=== PATIENT | female | born 1950 | race Caucasian/White ===

== ENCOUNTER 2016-09-08 21:06 | Inpatient (IN) | payer OTHER ==
[~2016-09-08] VITALS: Ht 157.5 cm; Wt 64.9 kg
[2016-09-08 22:14] LABS: BASOPHIL % 0.4 % (0-2); PLATELET COUNT 255 x10^3mcL (130-400); RED CELL DISTRIBUTION WIDTH 14.4 % (11.5-14.5)
[2016-09-08 22:27] LABS: CALCIUM 8.9 mg/dL (8.5-10.1); CARBON DIOXIDE 25.1 mmol/L (21-32); CHLORIDE SERUM 100 mmol/L (98-107); CREATININE SERUM 1.6 mg/dL (0.6-1.0); GFR1 34 mL/min; GLUCOSE SERUM 158 mg/dL (74-106); POTASSIUM SERUM 3.9 mmol/L (3.5-5.1); SODIUM SERUM 137 mmol/L (136-145)
[2016-09-08 22:41] LABS: ALBUMIN 3.7 g/dL (3.4-5.0); ALKALINE PHOSPHATASE 91 U/L (46-116); ALT/SGPT 16 U/L (14-59); AST/SGOT 17 U/L (15-37); BILIRUBIN TOTAL 0.4 mg/dL (0.20-1.00); T4(THYROXINE) 10.6 ug/dL (4.7-13.3); TOTAL PROTEIN, SERUM 7.3 g/dL (6.4-8.2)
[2016-09-08 22:46] LABS: AMPHETAMINE QUAL UR NONE DETECTED (NEG <=1000)
[2016-09-08] MEDS ORDERED: ENALAPRIL MALE2.5 MG (23:45)
[2016-09-08] MEDS ORDERED: SIMVASTATIN5 M2 (23:45)
[2016-09-08] MEDS ORDERED: GABAPENTIN100 M2 (23:45)
[2016-09-08] MEDS ORDERED: LANTUS SOLOS100 U/M1 (23:45)
[2016-09-08] MEDS ORDERED: HYDRALAZINE HCL25 MG (23:46)
[2016-09-08] MEDS ORDERED: KEFLEX250 M1 (23:49)
[2016-09-09] VITALS (7 sets, daily range): BP systolic 153–233; BP diastolic 65–90; Ht 157.5 cm; Wt 64.9 kg
[2016-09-09 03:08] LABS: microscopic required? YES; urine erythrocyte NEGATIVE (NEGATIVE)
[2016-09-09 03:30] LABS: CHOLESTEROL/HDL RATIO 3.9
[2016-09-09 03:33] LABS: FREE T4 1.63 ng/dL (0.76-1.46); FREE THYROXINE INDEX 4.3 ug/dL (1.4-4.5); T4(THYROXINE) 11.2 ug/dL (4.7-13.3)
[2016-09-09 03:57] LABS: T3 TOTAL 0.62 ng/mL
[2016-09-09 06:52] LABS: BASOPHIL % 0.5 % (0-2); PLATELET COUNT 211 x10^3mcL (130-400); RED CELL DISTRIBUTION WIDTH 14.3 % (11.5-14.5)
[2016-09-09 06:54] LABS: CALCIUM 8.3 mg/dL (8.5-10.1); CARBON DIOXIDE 23.7 mmol/L (21-32); CREATININE SERUM 1.5 mg/dL (0.6-1.0); MAGNESIUM 2.3 mg/dL (1.8-2.4); PHOSPHOROUS 4.4 mg/dL (2.5-4.9); POTASSIUM SERUM 3.9 mmol/L (3.5-5.1)
[2016-09-09] MEDS ORDERED: CLONIDINE0.2 M1 PO (20:04)
[2016-09-09] MEDS ORDERED: HYDRALAZINE HCL25 MG PO (20:05)
[2016-09-09] MEDS ORDERED: GABAPENTIN100 M2 PO (20:05)
[2016-09-09] MEDS ORDERED: ASPIRIN ADULT L81 M3 PO (20:06)
[2016-09-09] MEDS ORDERED: LEVOTHYROXIN0.125 M2 PO (20:06)
[2016-09-09] MEDS ORDERED: SIMVASTATIN20 M1 PO (20:09)
[2016-09-09] MEDS ORDERED: ENALAPRIL20 M1 PO (20:09)
[2016-09-10] VITALS (7 sets, daily range): BP systolic 157–189; BP diastolic 63–79
[2016-09-10 06:16] LABS: BASOPHIL % 0.7 % (0-2); PLATELET COUNT 228 x10^3mcL (130-400)
[2016-09-10 06:31] LABS: CALCIUM 8.2 mg/dL (8.5-10.1); CREATININE SERUM 1.4 mg/dL (0.6-1.0); POTASSIUM SERUM 3.8 mmol/L (3.5-5.1)
[2016-09-10 06:34] LABS: ALBUMIN 3.1 g/dL (3.4-5.0)
[2016-09-11 05:01] VITALS: BP 145/78
[2016-09-11 06:09] LABS: CALCIUM 8.6 mg/dL (8.5-10.1); CARBON DIOXIDE 26.7 mmol/L (21-32); CREATININE SERUM 1.4 mg/dL (0.6-1.0); POTASSIUM SERUM 4.1 mmol/L (3.5-5.1); URIC ACID 5.5 mg/dL (2.6-6.0)
[2016-09-11 06:11] LABS: ALBUMIN 3.1 g/dL (3.4-5.0)
[2016-09-11 07:06] LABS: BASOPHIL % 0.8 % (0-2); PLATELET COUNT 241 x10^3mcL (130-400); RED CELL DISTRIBUTION WIDTH 14.4 % (11.5-14.5)
[2016-09-11 07:59] VITALS: BP 138/69
[2016-09-11 09:38] VITALS: BP 172/68
[2016-09-11 13:05] VITALS: BP 107/40
[2016-09-11 14:05] VITALS: BP 107/40
[2016-09-11] MEDS ORDERED: MIN2.5 PO (14:53)
[2016-09-11] MEDS ORDERED: TEN50 PO (14:53)
[2016-09-11] MEDS ORDERED: LEXAPRO10 MG PO (14:54)
[2016-09-11] MEDS ORDERED: NITROFURANTOIN50 MG PO (14:56)
[2016-09-11] MEDS ORDERED: LAC PO (14:56)
== END 2016-09-11 15:28 | disposition home health service (06) | DRG 885 ==
LOC: ED 21:06 → DU 23:37 → MU 09-10 09:37
PROVIDERS: Emergency Medicine; ADMIT Family Medicine
DX: F33.1 Major depressive disorder, recurrent, moderate (principal); N17.0 Acute kidney failure with tubular necrosis; E44.0 Moderate protein-calorie malnutrition; I69.354 Hemiplegia and hemiparesis following cerebral infarction affecting left non-dominant side; N39.0 Urinary tract infection, site not specified; D68.69 Other thrombophilia; I16.0 Hypertensive urgency; I11.9 Hypertensive heart disease without heart failure; E83.51 Hypocalcemia; R80.8 Other proteinuria; E78.1 Pure hyperglyceridemia; E11.42 Type 2 diabetes mellitus with diabetic polyneuropathy; E03.9 Hypothyroidism, unspecified; E78.5 Hyperlipidemia, unspecified; D64.9 Anemia, unspecified; Z79.4 Long term (current) use of insulin; Z90.5 Acquired absence of kidney; Z68.26 Body mass index [BMI] 26.0-26.9, adult
CPT/HCPCS: 80307; 82962; 83880; 84439; G0480; J0360; J0696; J3490; J7030; J7050; Q0092

== ENCOUNTER 2018-08-06 19:51 | Inpatient (IN) | payer OTHER ==
[~2018-08-06] VITALS: Ht 157.5 cm; Wt 54.0 kg
[~2018-08-06 19:51] MED LIST: ASPIRIN ADULT L81 M3 PO; CLONIDINE0.2 M1 PO; ENALAPRIL MALE2.5 MG; ENALAPRIL20 M1 PO; GABAPENTIN100 M2; GABAPENTIN100 M2 PO; HYDRALAZINE HCL25 MG; HYDRALAZINE HCL25 MG PO; KEFLEX250 M1; LAC PO; LANTUS SOLOS100 U/M1; LEVOTHYROXIN0.125 M2 PO; LEXAPRO10 MG PO; MIN2.5 PO; NITROFURANTOIN50 MG PO; SIMVASTATIN20 M1 PO; SIMVASTATIN5 M2; TEN50 PO
--- NOTE | 2018-08-06 20:31 | NUR ---
PATIENT CAME IN FOR FEVER X "5 WEEKS", WHEN ASKED HOW HIGH OF A FEVER SHE STATES "100.9." REPORTS NAUSEA, DENIES VOMITTING OR DIARRHEA. DENIES CHEST PAIN, PRESSURE, SOB. WHEN ASKED HOW HER SYMPTOMS BEGAN, SHE STATES SHE HAD A DIALYSIS CATHETER PLACED IN HE RIGHT UPPER CHEST 5 WEEKS AGO. SITE APPEARS RED, WITHOUT ANY DRAINAGE NOTED. PATIENT COMPLAINS OF "BONE PAIN" 01/08. PT AWAKE, ALERT, RESPIRATIONS EVEN AND UNLAOBRED, NO S/S OF DISTRESS NOTED AT THIS TIME. SAFETY PRECAUTIONS IN PLACE. FAMILY AT BEDSIDE. SAFETY PRECAUTIONS IN PLACE
--- NOTE | 2018-08-06 20:39 | NUR ---
DR. ROBBINS AT BEDSIDE FOR MSE
--- NOTE | 2018-08-06 21:08 | NUR ---
PT PROVIDED WITH URINE SPECIMEN CUP AND VERBALIZED FOR NEED TO PROVIDE URINE SAMPLE, PATIENT VERBALIZES UNDERSTANDING.
--- NOTE | 2018-08-06 21:09 | NUR ---
EKG IN ROOM
[2018-08-06 21:16] LABS: PLATELET COUNT 309 x10^3mcL (130-400); RED CELL DISTRIBUTION WIDTH 14.4 % (11.5-14.5)
--- NOTE | 2018-08-06 21:20 | NUR ---
MEDICATED PER EMAR. AND PLACED ON 2L OXYGEN, 02 SAT 87-94% ON ROOM AIR. WILL CONTINUE TO MONITOR.
--- NOTE | 2018-08-06 21:25 | NUR ---
CXR AT BEDSIDE
[2018-08-06 21:27] LABS: CALCIUM 8.4 mg/dL (8.5-10.1); CARBON DIOXIDE 31.3 mmol/L (21-32); CREATININE SERUM 2.5 mg/dL (0.6-1.0); POTASSIUM SERUM 3.5 mmol/L (3.5-5.1)
[2018-08-06 21:32] LABS: BAND NEUTROPHIL 14 % (0-10); BASOPHIL 0 % (0-2); MONOCYTE 5 % (0-7); SEGMENTED NEUTROPHILS 79 % (37-75); rbc morphology (normal/abnorm) NORMAL (NORMAL)
[2018-08-06 21:33] LABS: PLATELET MORPHOLOGY PLATELETS NORMAL
[2018-08-06 21:39] LABS: BILIRUBIN TOTAL 0.6 mg/dL (0.20-1.00); FREE T4 1.27 ng/dL (0.76-1.46); TOTAL PROTEIN, SERUM 6.7 g/dL (6.4-8.2)
[2018-08-06 21:50] LABS: ALBUMIN 2.8 g/dL (3.4-5.0)
--- NOTE | 2018-08-06 21:55 | NUR ---
DANIEL COMPLETED AT THIS TIME. CALLED PHARMACY NEDA ABOUT VANCO NOT BEING AVAILABLE, NEDA STATES SHE WILL BRING VANCO.
--- NOTE | 2018-08-06 22:43 | NUR ---
PT RESTING WITH EYES CLOSED, RESPONDS TO VERBAL STIMULI, RESPIRATIONS EVEN AND UNLABORED, NO S/S OF DISTRESS NOTED. SAFETY PRECAUTIONS IN PLACE.
--- NOTE | 2018-08-06 23:24 | NUR ---
PT REMAINS FREE FROM S/S OF DISTRESS, RESPIRATIONS EVEN AND UNLABORED. SAFETY PRECAUTIONS IN PLACE.
--- NOTE | 2018-08-06 23:45 | NUR ---
REPORT GIVEN TO OLLIE VALDES, ALL QUESTIONS AND CONCERNS WERE ADDRESSED.
[2018-08-07] VITALS (8 sets, daily range): BP systolic 109–161; BP diastolic 44–85
--- NOTE | 2018-08-07 00:10 | NUR ---
RECEIVED PT FROM ED VIA [facility], CAME IN DUE TO FEVER. AAOX4.W/ LEFT FACIAL DROOP AND LEFT SIDED WEAKNESS. LEFT HAND THEORETICAL PHYSICIST IS WEAKER THAN THE RIGHT. NO SOB NOTED, LUNG SOUNDS CTA. WHEN PLACED ON ROOM AIR, O2 SAT=88%, PLACED ON 3LPM/NC, O2 SAT=95%. DENIES CHEST PAIN/PRESSURE, SR ON THE MONITOR. DENIES ABDOMINAL DISCOMFORT. BOWEL SOUNDS ACTIVE. PT STATED THAT SHE STILL VOIDS. ON HD EVERY THURSDAY AND THURSDAY. W/ RIGHT CHEST DIALYSIS CATHETER. W/ ERYTHEMA ON THE INSERTION SITE OF THE RIGHT CHEST DIALYSIS CATHETER AND SMALL SCAB ON THE RIGHT UPPER CHEST. PALE. PULSES ARE PALPABLE. IV SITE ON THE RFA IS PATENT AND INTACT. SIDE RAILS UPX2. CALL LIGHT ON REACH. PRIMARY NURSE OLLIE AT BEDSIDE FOR CONTINUITY OF CARE
--- NOTE | 2018-08-07 00:15 | NUR ---
PT IS AAOX4. TELE #16 NSR HR 77, PT DENIES ANY CHEST PAIN. LUNG SOUNDS CTA ON NC 3L/MIN NO SOB NOTED. IV RFA PATENT, INFUSING WELL. LEFT SIDED FACIAL DROOP, LEFT SIDED WEAKNESS. PT USES WHEELCHAIR. DIALYSIS CATH ON RIGHT UPPER CHEST WITH ERYTHEMA NOTED. ACTIVE BOWEL SOUNDS, PT STATES SHE HAD A BM 08/06/18 BUT SHE IS CONSTIPATED. CALL BUTTON WITHIN REACH. WILL CONTINUE TO MONITOR.
[2018-08-07 02:58] LABS: microscopic required? YES; urine erythrocyte TRACE (NEGATIVE)
--- NOTE | 2018-08-07 03:01 | NUR ---
PT USED THE BEDPAN AT THIS TIME, DENIES ANY PAIN. IV INFUSING WELL. WILL CONTINUE TO MONITOR.
[2018-08-07 03:34] LABS: AMPHETAMINE QUAL UR NONE DETECTED (See below)
--- NOTE | 2018-08-07 05:15 | NUR ---
RT AT BEDSIDE.
--- NOTE | 2018-08-07 05:49 | NUR ---
PT ON NC 4L/MIN O2SAT 87-90%, BREATHING TREATMENT PER RT PROTOCOL, AFTER TREATMENT SIMPLE MASK PLACED AT 9L/MIN O2SAT 95-96%, PER RT WILL COME BACK AND DO ANOTHER TREATMENT AND TITRATE.
--- NOTE | 2018-08-07 07:02 | NUR ---
AT 0630 BASIN OPERATOR NOTED PT HAVING DIFFICULTY BREATHING WITH MASK OFF. CHARGE NURSE WENT AT BEDSIDE RIGHT AWAY TO ASSESS PATIENT. DR GRAJEDA WALKING DOWN THE HALLWAY AND WAS CALLED. RT CALLED. RAPID RESPONSE TEAM RESPONDED ON TIME. PT TRANSFERED TO ICU AT 0708.
--- NOTE | 2018-08-07 07:10 | NUR ---
RECIEVED PT FROM [facility]. PT A&OX3. ABLE TO FOLLOW COMMANS. RESPONDS TO VERBAL, TACTILE, AND PAINFUL STIMULUS. VS = BP: 161/62 (102), HR: 124 BPM, RR: 38, TEMP: 100.2, O2: 100%. ON BIPAP OF 100% FIO2, IPAP: 12, EPAP: 6, RATE: 12. BREATHING E/U. LUNG SOUNDS: WHEEZES IN BUL AND DIMINISHED TO BLL. PUPILS 3MM IN SIZE AND BRISK IN RESPONSE TO LIGHT BILATERALLY. L FACIAL DROOP AND LEFT SIDED WEAKNESS NOTED. NO CHEST PAIN NOTED. RIGHT CHEST DIALYSIS CATH NOTED. PULSES ARE STRONG TO BUE AND BLE. CAP REFILL <3 SEC TO BUE AND BLE. SKIN WARM AND DRY TO TOUCH, BROWN IN COLOR. SKIN INTACT. NO WOUNDS NOTED. R AC PIV INTACT AND SECURED, NO FLUIDS RUNNING. NO EDEMA NOTED. LEFT HAND WEAKER IN STRENGTH THAT RIGHT HAND. WILL RESUME CARE.
--- NOTE | 2018-08-07 07:10 | NUR ---
RECIEVED PT FROM [facility]. WILL RESUME CARE.
--- NOTE | 2018-08-07 07:23 | NUR ---
CALLED PT'S REGARDING PT TRANSFERRED TO ICU, VOICEMAIL LEFT.
--- NOTE | 2018-08-07 07:59 | NUR ---
SPOKE WITH DR. DUNN IN REGARDS TO CLARIFY CODE STATUS. PT ARRIVED S/P RAPID RESPONSE ON BIPAP WITH A DNR CODE STATUS. PER DR. DUNN PT REMAINS A DNR BUT PT WAS OK WITH BIPAP DURING THE RAPID RESPONSE. AWAITING FOR DR. DUNN TO UPDATE CODE STATUS. PRIMARY RN AWARE OF THE ABOVE.
[2018-08-07 08:19] LABS: CALCIUM 7.9 mg/dL (8.5-10.1); CARBON DIOXIDE 27.7 mmol/L (21-32); MAGNESIUM 1.7 mg/dL (1.8-2.4); PHOSPHOROUS 1.6 mg/dL (2.5-4.9); POTASSIUM SERUM 3.4 mmol/L (3.5-5.1)
[2018-08-07 08:20] LABS: IRON 6 ug/dL (50-170); TOTAL IRON BINDING CAPACITY 153 ug/dL (250-450)
[2018-08-07 08:48] LABS: PLATELET COUNT 292 x10^3mcL (130-400)
[2018-08-07 08:50] LABS: RED BLOOD CELLS 2.77 M/mm3 (4.10-5.10)
[2018-08-07 09:07] LABS: RED CELL DISTRIBUTION WIDTH 14.8 % (11.5-14.5)
--- NOTE | 2018-08-07 09:30 | NUR ---
DR DUNN PAGED REGARDING BLOOD CULTURE RESULT
--- NOTE | 2018-08-07 10:37 | NUR ---
DR. RIDLEY AND RESIDENTS AT BEDSIDE. ADDRESSING QUESTIONS FROM PT'S SPOUSE. NO NEW ORDERS AT THIS TIME.
--- NOTE | 2018-08-07 10:52 | NUR ---
DR. RIDLEY, RESIDENT DR. DUNN, TECHNICAL DOCUMENTATION SPECIALIST AND PRIMARY RN AT BEDSIDE FOR MORNING ROUNDS. PLAN OF CARE DISCUSSED. WILL CONT TO MONITOR.
[2018-08-07 11:10] LABS: BAND NEUTROPHIL 9 % (0-10); BASOPHIL 0 % (0-2); MONOCYTE 1 % (0-7); SEGMENTED NEUTROPHILS 87 % (37-75)
[2018-08-07 11:11] LABS: PLATELET MORPHOLOGY PLATELETS NORMAL; rbc morphology (normal/abnorm) ABNORMAL (NORMAL)
--- NOTE | 2018-08-07 12:20 | NUR ---
HD NURSE AT BEDSIDE.
--- NOTE | 2018-08-07 15:14 | NUR ---
PUT PT ON NC @ 4LPM. 02 SAT IN 95-98%. WILL CONTINUE TO CLOSELY MONITOR.
--- NOTE | 2018-08-07 18:00 | NUR ---
GIVEN PT SUPPOSITORY. HAD A SMALL AMOUNT OF DARK BROWN AND SOFT STOOL. PT CLEANED AND LINEN CHANGED.
--- NOTE | 2018-08-07 19:16 | NUR ---
GIVEN REPORT TO ANTONIO VALDES. WILL ENDORSE CARE.
--- NOTE | 2018-08-07 19:30 | NUR ---
REC'D REPORT FROM DAO VALDES TO ASSUME CARE. PT IS A/O X4, SPEECH CLEAR AND APPROPRIATE. ABLE TO FOLLOW COMMANDS. LEFT SIDED DEFICIT NOTED WITH HX CVA 12/23/2010. PT DENIES ANY PAIN OR DISCOMFORT. NO ACUTE DISTRESS NOTED. NO SOB NOTED, RESPS E/U ON O2 4LPM VIA NC. CHEST RISE EQUAL AND SYMMETRICAL. LUNG SOUNDS CLEAR BUL, DIMINISHED BASES. VEHICLE BODY MAKER IN PLACE SHOWING NSR WITH HR 71. DENIES ANY CP, SYNCOPE, OR DIZZINESS. SKIN WARM DRY TO TOUCH. IV TO RFA INTACT AND PATENT, SL. R UPPER CHEST VERO HD CATH INTACT AND SECURED, DSG CDI. ABD SOFT, FLAT, NONTENDER TO TOUCH. BOWEL SOUNDS ACTIVE. DENIES ANY N/V/D. F/C INTACT AND DRAINING VIA GRAVITY YELLOW URINE. INSTRUCTED TO USE CALL LIGHT FOR ANY ASSISTANCE. CALL LIGHT WITHIN REACH. WILL CONTINUE TO MONITOR.
--- NOTE | 2018-08-07 20:30 | NUR ---
DR LORENZO AT BEDSIDE, UPDATED ON STATUS, NO NEW ORDERS GIVEN.
--- NOTE | 2018-08-07 21:00 | NUR ---
BS 95, PT PROVIDED HS SNACK. PT ATE HALF PEANUT BUTTER JELLY SANDWICH WITH ORANGE JUICE.
--- NOTE | 2018-08-07 22:50 | NUR ---
PT AWAKE, REPOSITIONED AT THIS TIME.
[2018-08-08 03:39] VITALS: BP 124/49
--- NOTE | 2018-08-08 04:51 | NUR ---
PT HAD MODERATE SIZED BM, PT CLEANED AND LINENS CHANGED. REPOSITIONED AT THIS TIME.
[2018-08-08 05:33] LABS: BASOPHIL % 0.1 % (0-2); PLATELET COUNT 281 x10^3mcL (130-400)
[2018-08-08 05:44] LABS: RED CELL DISTRIBUTION WIDTH 14.7 % (11.5-14.5)
[2018-08-08 05:53] LABS: CALCIUM 7.8 mg/dL (8.5-10.1); CREATININE SERUM 3.6 mg/dL (0.6-1.0); MAGNESIUM 2.8 mg/dL (1.8-2.4); PHOSPHOROUS 2.5 mg/dL (2.5-4.9); POTASSIUM SERUM 3.8 mmol/L (3.5-5.1)
--- NOTE | 2018-08-08 06:36 | NUR ---
PT PLACED ON BEDPAN, LOOSE BM NOTED D/T MOM GIVEN FOR C/O CONSTIPATION. PT CLEANED, LINENS CHANGED.
--- NOTE | 2018-08-08 06:45 | NUR ---
PT WITH C/O 7/10 CHEST PRESSURE, MEDICATED WITH MORPHINE IVP. WILL MONITOR FOR EFFECTIVENESS.
--- NOTE | 2018-08-08 07:09 | NUR ---
REPORT GIVEN TO CASIE VALDES TO ASSUME CARE.
[2018-08-08 07:20] VITALS: BP 123/75
[2018-08-08 07:36] VITALS: Ht 157.5 cm; Wt 54.0 kg
[2018-08-08 11:35] VITALS: BP 121/45
--- NOTE | 2018-08-08 13:14 | NUR ---
O2 SAT 100%. BREATHING E/U AND REGULAR EFFORT. 3L NC TITRATED OFF AT THIS TIME. PT REMAINS @ 99% O2 SATURATION. WILL CONTINUE TO MONITOR
--- NOTE | 2018-08-08 15:58 | NUR ---
O2 SAT 91%. PLACED ON 2L NC. O2 SAT NOW 100%. NO S/SX OF DISTRESS.
--- NOTE | 2018-08-08 16:05 | NUR ---
REPORT GIVEN TO FREDDIE VALDES. ALL QUESTIONS ADDRESSED.
[2018-08-08 16:10] VITALS: BP 99/47
--- NOTE | 2018-08-08 16:15 | NUR ---
PT RECEIVED FROM ICU ON A GURNEY ESCORTED BY FAMILY. REPORT GIVEN BY KEISHA JASON. PT IS AAOX4. DENIES H/A OR DIZZINESS. RESP EVEN AND UNLABORED. ON O2 N/C AT 2LPM. ABDOMEN SOFT, NONTENDER, NONDISTENDED. BOWEL SOUNDS ACTIVE. VERO CATH TO R SUBCLAVIAN COVERED WITH CDI DRESSING. IV CATH TO RFA 22G WITH FLUIDS RUNNING, PATENT, SITE WNL. PT ON STRICT I AND O WITH 1200ML LIMIT, PT HAS 400 ML LEFT TO BE CONSUMED. NUNEZ CATH IN PLACE DRAINING CLEAR STRAW COLORED URINE. BED IN LOW POSITION. CALL LIGHT WITHIN REACH.
--- NOTE | 2018-08-08 18:10 | NUR ---
PT IS SITTING UP IN BED EATING DINNER AND VISITING FAMILY. RESP EVEN AND UNLABORED. NO SOB OR COUGH NOTED. PT DENIES PAIN AND DISCOMFORT. CALL LIGHT WITHIN REACH. BED ALARM ON.
--- NOTE | 2018-08-08 18:40 | NUR ---
PT IS AAOX4. RESP EVEN AND UNLABORED. NO RESP DISTRESS NOTED. IVF RUNNING TO RFA, SITE IS PATENT AND WNL. R SUBCLAVIAN VERO CATH COVERED WITH CDI DRESSING, SITE WNL. NUNEZ CATH IN PLACE DRAINING CLEAR STRAW COLORED URINE. PT DENIES PAIN AND DISCOMFORT AT THIS TIME. CALL LIGHT WITHIN REACH, BED ALARM ON, BED IN LOW POSITION. WILL ENDORSE ALL CARE TO NOC RN.
--- NOTE | 2018-08-08 19:05 | NUR ---
RECEIVED PT A/O X4, [facility] SPEAKING, ABLE TO MAKE NEEDS KNOWN. TELE 48, DENIES ANY CP/PRESSURE. PULSES PALPABLE, NO EDEMA PRESENT. LUNG SOUNDS DIM TO TIFF BASES, BREATHING IS EVEN AND UNLABORED ON 2L NC, PT DENIES SOB, NO RESP DISTRESS OBSERVED. HOB ELEVATED. NUNEZ CATH IN PLACE DRAINING TO GRAVITY, YELLOW COLORED URINE NOTED. STRICT I+O: 1200 ML FLUID RESTRICTION. GENERALIZED WEAKNESS. CONTRACTURE TO LH. SKIN IS INTACT. PT DENIES ANY PAIN AT THIS TIME. TO RFA, PATENT AND INTACT, SITE WNL. BED IN LOWEST SETTING, SIDE RAILS UP X2, BED ALARM ON, CALL LIGHT WITHIN REACH. WILL CONT TO MONITOR.
[2018-08-08 20:37] VITALS: BP 141/57
--- NOTE | 2018-08-08 21:19 | NUR ---
DR LORENZO IN TO SEE PT. PER DR LORENZO, PT NEEDS TO START HAVING DIALYSIS 3X/WEEK. PT VERBALIZES UNDERSTANDING. ORDERS RECEIVED FOR DIALYSIS TOMORROW. ALL QUESTIONS AND CONCERNS ADDRESED. PT IN NO ACUTE DISTRESS, WILL CONT TO MONITOR.
--- NOTE | 2018-08-08 22:00 | NUR ---
PER ORCHARDIST-WILLIAN, DIALYSIS NURSE-DIONNA WAS CALLED AND MADE AWARE OF PT NEEDING DIALYSIS TOMORROW. PER ORCHARDIST, "DIONNA WILL COME IN THE AM TO DO DIALYSIS."
--- NOTE | 2018-08-09 00:11 | NUR ---
PT AWAKE AND ALERT, WATCHING TV. BREATHING IS EVEN AND UNLABORED, PT PLACED ON BIPAP PER PT'S REQUEST, NO RESP DISTRESS NOTED. NUNEZ IN PLACE, DRAINING TO GRAVITY. PT DENIES ANY PAIN AT THIS TIME. IV INTACT TO RFA. BED ALARM ON, CALL LIGHT WITHIN REACH. WILL CONT TO MONITOR.
--- NOTE | 2018-08-09 01:25 | NUR ---
PT AWAKE AND ALERT. PT REQUESTING TO BE OFF BIPAP, PT STATES "I CAN'T SLEEP WITH IT ON." BIPAP REMOVED PER PT'S REQUEST. PT PLACED BACK ON 2L NC, NO RESP DISTRESS NOTED. PT DENIES HAVING ANY PAIN AT THIS TIME. BED ALARM ON, CALL LIGHT WITHIN REACH. WILL CONT TO MONITOR.
[2018-08-09 04:50] VITALS: BP 150/61
--- NOTE | 2018-08-09 06:57 | NUR ---
PT SLEPT WELL THROUGHOUT THE EVENING. BREATHING IS EVEN AND UNLABORED ON 2L NC, NO RESP DISTRESS NOTED. PT DENIES ANY PAIN AT THIS TIME. NUNEZ CARE GIVEN, URINE OUTPUT-350 ML. NUNEZ CATH SECURE AND IN PLACE, DRAINING TO GRAVITY. ALL NEEDS MET. BED ALARM ON. CALL LIGHT WITHIN REACH. WILL ENDORSE CARE TO AM NURSE.
--- NOTE | 2018-08-09 07:11 | NUR ---
RECEIVED REPORT FROM SUZETTE VALDES. PT RESTING COMFORTABLY IN BED. IV TO RFA IS PATENT AND INTACT. NO REDNESS OR PAIN. TELE # [address] PT DENIES CHEST PAIN. PT ON O2 2L NC. NO C/O SOB AND NO DISTRESS NOTED. ALL QUESTIONS AND CONCERNS ADDRESSED.
[2018-08-09 08:31] LABS: PLATELET COUNT 315 x10^3mcL (130-400)
[2018-08-09 08:32] LABS: BASOPHIL % 0 % (0-2); RED CELL DISTRIBUTION WIDTH 15.3 % (11.5-14.5)
[2018-08-09 08:46] LABS: POTASSIUM SERUM 3.8 mmol/L (3.5-5.1)
[2018-08-09 09:12] LABS: CREATININE SERUM 4.8 mg/dL (0.6-1.0)
[2018-08-09 09:45] VITALS: BP 131/49
--- NOTE | 2018-08-09 11:43 | NUR ---
PHYSICAL THERAPY AMBULATING WITH PATIENT IN THE [place].
--- NOTE | 2018-08-09 12:04 | NUR ---
DIABETES EDUCATION NURSE AGATA IN TO SEE PATIENT.
[2018-08-09 13:18] VITALS: BP 137/52
--- NOTE | 2018-08-09 15:24 | NUR ---
Intervention 1. [facility] and Nephro-stanley supplement for dialysis pts spoke to Dr. Segura
--- NOTE | 2018-08-09 15:24 | NUR ---
Initial Nutrition Assessment- Isatu Villegas Dx: fever, sever sepsis, pulmonary edema PMHx: HTN, Hyperlipidemia, DM2, Hypothyroidism, Renal cancer, ESRD on HD Basal ganglia stroke 7 years ago PSHx: nephrectomy due to renal cancer does not remember which side or when Labs: Na 136, K 3.8, Cl 97L, Glucos 177H, BUN 61, Creat 5.8, Hgb 8.2 L, Hct 24L Meds: Colace, Dextrose 50% water, Dulcolax, Humulin, Lasix, Lexapro, Milk of Magnesia, Precision PCX Blood Gluocse Test Strips, Synthroid, Zofran, Zosyn Ht: 62 in Wt: 122# 55.5kg BMI: 22.4 WNL IBW: 115# %IBW: % UBW: 152 Age:68 Food Allergies: NKA Skin: Intact Brandon 15 Edema: None GI: Last BM 08/07/18 Per H&P: Was presented with fever, generalized pain, and nausea for 5 weeks. She states that she started having fevers when she first started dialysis 5 weeks ago and had her dialysis catheter placed. She describes the pain as an aching in her bones and rates it an 8/10. She ambulates by wheelchair because of left sided deficits due to her stroke 7 years ago. She also admits to runny nose and constipation for 3 to 4 days, photophobia and dizziness. She denies vomiting, changes in urination, chest pain, cough, sore throat, numbness. Pt Visit: Pt was receptive of education and was on dialysis when education was being given. Made recommendation for renal diet and Nephro-stanley to Dr. Segura and he took note of it as well. Problem with: N: yes V: yes (yesterday) D: this morning C: No Problems with: Chewing: No Swallowing: No Current appetite: Usually ok, sometimes wants to eat Recent wt change: a little wt loss due to dialysis %wt change: None Vitamin/Supplement use: Calcium and Iron 2-3x/day Physical activity: walks for 15 mins a day Education: Renal diet handout was given and vit/supplement education was discussed for Nephro-stanley for pts on dialysis. Estimated Nutritional Needs Based on actual body weight kg Energy: 1665-1942kcal/d (RMR X)(30-35kcal/kg based on dialysis needs) Protein: 67-78g/d (g/kg)- (1.2-1.4 g/kg based on dialysis needs) Fluid: per doctor recommendation due to dialysis Nutrition Diagnosis 1. Food and nutrition related knowledge deficit r/t lack of prior education aeb pt demonstrating unfamiliarness with renal diet restrictions. Intervention 1. Renal/[facility] diet recommended and Nephro-stanley supplement for dialysis pts spoke to Dr. Segura Monitor/Evaluate Goal: PO intake at least 75% of estimated needs Monitor: PO intake and knowledge and tolerance of renal diet and recommendations of Nephro-stanley supplement, wt and labs if available F/U MR due 08/12-08/14
--- NOTE | 2018-08-09 16:29 | NUR ---
DIALYSIS COMPLETE. 2.6L OUT. PT TOLERATED IT WELL.
[2018-08-09 17:45] VITALS: BP 149/59
--- NOTE | 2018-08-09 19:00 | NUR ---
RECEIVED PT IN BED COMFORTABLY RESTING.AAOX4. LUNG SOUND CTA,BREATHING EVEN AND UNLABORED.TELE# 48 NSR.DENIES ANY PRESSURE OR CP AT THIS TIME. IV SITE TO RFA PATENT AND INTACT.RIGHT SUBCLAVIAN MARK CATH ACCESS FOR HD.BIPAP AT BEDSIDE.NOTICED LEFT HAND CONTRACTURE. BED IN LOWEST POSITION,CALL LIGHT WITHIN REACH. WILL CONTINUE TO MONITOR.
--- NOTE | 2018-08-09 19:58 | NUR ---
REPORT GIVEN TO IVIS VALDES. PT RESTING IN BED WITH ALL NEEDS MET. ALL QUESTIONS AND CONCERNS ADDRESSED. ALL CARES ENDORSED.
[2018-08-09 21:09] VITALS: BP 144/51
--- NOTE | 2018-08-10 05:10 | NUR ---
PT AOX4.NO DISTRESS NOTED.DENIES ANY PAIN AT THIS TIME.F/C CARE DONE.BED IN LOWEST POSITION,CALL LIGHT WITHIN REACH. WILL CONTINUE TO MONITOR.
[2018-08-10 05:14] VITALS: BP 150/63
[2018-08-10 06:58] LABS: CALCIUM 7.8 mg/dL (8.5-10.1); CARBON DIOXIDE 25.6 mmol/L (21-32); POTASSIUM SERUM 3.7 mmol/L (3.5-5.1)
--- NOTE | 2018-08-10 07:28 | NUR ---
CARE ENDORSED TO DAY NURSE SUJATA.ALL QUESTION AND CONCERN WERE ADDRESSED.
[2018-08-10 07:29] LABS: BASOPHIL % 0.4 % (0-2); PLATELET COUNT 310 x10^3mcL (130-400)
[2018-08-10 07:39] LABS: RED CELL DISTRIBUTION WIDTH 15.5 % (11.5-14.5)
--- NOTE | 2018-08-10 07:50 | NUR ---
RECEIVED PT IN BED. ASSESSED AND DOCUMENTED. DENIES PAIN THIS TIME. STABLE. SAFTEY PRECAUTIONS ARE IN PLACE. WILL MONITOR.
--- NOTE | 2018-08-10 09:30 | NUR ---
AWARE ABOUT H/H=7.11/21. NO NEW ORDER RECEIVED THIS TIME.
[2018-08-10 09:56] VITALS: BP 147/61
--- NOTE | 2018-08-10 12:40 | NUR ---
OR NURSE JEANNINE CAME AND EXPLAINED THE PROCEDURE TO THE PT AND HAVE PT SIGNED CONSENT FOR REMOVAL OF TUNNEL CATH, ALSO EXPLAINED TO THE PROCEDURE TO PT. CHECK LIST DONE. OR STAFF TOOK PT TO OR VIA BED. V/S IS STABLE.
--- NOTE | 2018-08-10 13:29 | NUR ---
AT 1320 PATIENT RECEIVED FROM RR VIA BED ACCOMPANIED BY RN WITH PORTABLE MONITOR. PATIENT IS ALERT AND ORIENTED X3, OCCITAN SPEAKING BUT ABLE TO MAKE NEEDS KNOW.S/P RT TUNNEL CATH REMOVAL TODAY, PER RR NURSE CATH TIP SEND TO LAB FOR C&S, SITE WITH DERMABONUDN, SITE NO BLEEDING, VITAL SIGNS FOLLOWS= TEMP98.6, RR=18BPM, HR=68BPM, UK=904/58, ON 2LNC SAT 98%.TELE#48 NSR. PATIENT REQUESTING FOR FOOD, INFORMED THAT WE WILL CALL MD FOR ORDER.
--- NOTE | 2018-08-10 13:33 | NUR ---
PLACED A CALL FOR DR CHAVEZ.
--- NOTE | 2018-08-10 13:37 | NUR ---
COMPLAINED OF PAINAT CATH SITE AND ALSO HEADACHE, RATED PAIN AT 6/10, MADE COMFORTABLE AND MEDICATED PRN.
--- NOTE | 2018-08-10 14:00 | NUR ---
AWARE ABOUT CHEST XRAY RESULT.
--- NOTE | 2018-08-10 15:00 | NUR ---
PT IS STABLE, COMFORTABLE AND RESTING IN BED.
[2018-08-10 15:58] VITALS: BP 148/58
[2018-08-10 17:25] VITALS: BP 115/44
--- NOTE | 2018-08-10 19:05 | NUR ---
PT RESTING IN BED COMFORTABLY. DENIES PAIN THIS TIME. GAVE REPORT TO LPC NURSE. PT IS STABLE.
[2018-08-10 21:25] VITALS: BP 132/47
--- NOTE | 2018-08-11 00:48 | NUR ---
PATIENT QUIETLY SLEEPING AT THIS TIME. NO S/SX OF RESPIRATORY DISTRESS. BREATHING IS EVEN AND UNLABORED. CURRENTLY ON 2 LITERS NASAL CANNULA. CALL LIGHT WITHIN REACH. SALINE LOCK TO RFA. NUNEZ CATHETER DRAINING TO GRAVITY.
[2018-08-11 06:23] VITALS: BP 161/64
[2018-08-11 06:50] LABS: CALCIUM 7.9 mg/dL (8.5-10.1); CARBON DIOXIDE 24.9 mmol/L (21-32); PHOSPHOROUS 2.9 mg/dL (2.5-4.9); POTASSIUM SERUM 4.4 mmol/L (3.5-5.1)
[2018-08-11 06:56] LABS: BASOPHIL % 0.4 % (0-2); PLATELET COUNT 292 x10^3mcL (130-400)
[2018-08-11 06:57] LABS: RED CELL DISTRIBUTION WIDTH 14.9 % (11.5-14.5)
[2018-08-11 07:14] LABS: CREATININE SERUM 4.6 mg/dL (0.6-1.0)
--- NOTE | 2018-08-11 07:35 | NUR ---
RECEIVED PATIENT AWAKE/ALERT, NO RESP DISTRESS NOTED, DENIES PAIN. TELE #48 NOTED. IV TO RFA INTACT AND SL NOTED. POC EXPLAINED. CALL LIGHT IN REACH.
--- NOTE | 2018-08-11 07:41 | NUR ---
DR. CHAVEZ AT BEDSIDE SPOKE AND ASSESS PATIENT. RN REPORT TO BUN 48 AND CREAT 4.6 PER PATIENT WILL HAVE DIALYSIS TOMORROW.
--- NOTE | 2018-08-11 09:51 | NUR ---
PATIENT RESTING IN BED ON THE PHONE, NO COMPLAIN. ADMINISTERED PO MEDS. PATIENT TOLERATED WELL. LASIX IVP TO RFA IV PATENT. NEEDS MET. CALL LIGHT IN REACH.
[2018-08-11 10:13] VITALS: BP 139/51
--- NOTE | 2018-08-11 10:33 | NUR ---
DR. KIRKLAND WITH MAIL READER AT BEDSIDE DISCUSS POC WITH PATIENT, PLAN WILL HAVE DIALYSIS CATHETER PLACEMENT TOMORROW.
--- NOTE | 2018-08-11 12:03 | NUR ---
PATIENT RESTING IN BED ADMINISTERED 6 UNITS REGULAR INSULIN SQ FOR BS 219. FIELD LIABILITY GENERALIST ASSISTING CHANGE PATIENT AT THIS TIME. NO COMPLAIN.
--- NOTE | 2018-08-11 12:14 | NUR ---
RT AT BEDSIDE CHECK O2SAT 96% RA, PATIENT TOOK OFF O2. FAMILY MEMBER REMAIN AT BEDSIDE. CALL LIGHT IN REACH.
--- NOTE | 2018-08-11 13:00 | NUR ---
PATIENT AWAKE/ALERT SITTING UP IN BED EATING HER LUNCH, AT BEDSIDE. HYDRALAZINE PO ADMINISTERED, NO NEEDS AT THIS TIME. PT INFORM RN WILL BE BACK TO WORK ON PATIENT AFTER SHE FINISH HER LUNCH. CALL LIGHT IN REACH.
[2018-08-11 13:18] VITALS: BP 144/57
--- NOTE | 2018-08-11 15:00 | NUR ---
PATIENT REMAIN IN CHAIR NO COMPLAIN. CALL LIGHT IN REACH. CONT TO MONITOR.
--- NOTE | 2018-08-11 16:31 | NUR ---
PT ASSISTING PATIENT TO BATHROOM AND BACK TO BED, PATIENT REPORT HAS BM. ADMINISTERED 3 UNITS REGULAR INSULIN SQ FOR BS 169, ASSISTING PATIENT WITH HER NEEDS. CALL LIGHT IN REACH. CONT TO MONITOR.
[2018-08-11 16:53] VITALS: BP 149/52
--- NOTE | 2018-08-11 17:11 | NUR ---
PATIENT AWAKE/ALERT IN BED NO COMPLAIN. WATCHING TV. HYDRALAZINE AND ATENOLOL ADMINISTERED. NEEDS ATTENDED. SR HR 66 ON THE MONITOR. CONT TO MONITOR.
--- NOTE | 2018-08-11 18:10 | NUR ---
PATIENT ATE 100% OF HER DINNER, NO COMPLAIN. NEEDS MET. NUNEZ OUTPUT 180ML YELLOW W/ SEDIMENTS. CALL LIGHT IN REACH.
--- NOTE | 2018-08-11 21:12 | NUR ---
PT RECIEVED AAO WITH FAMILY AT THE BEDSIDE,REG RESP NO SOB V/S STABLE,KEPT CLEAN AND DRY TO TOUCH,PT HAS AHL TO THE RFA SITE PATENT AND INTACT,BED IN THE LOW POSITION AND LOCKED,KEPT CLEAN AND DRY TO TOUCH,RT CHEST DRESSING S/P TUNNEL CATH REMOVED,MADE COMFORTABLE IN BED,PT ON TELE MONITOR AND IN NSR NO ECTOPY OR CHEST ERICKSON AT THIS TIME,CALL LIGHT EASY REACHED AND WILL CONTINUE TO MONITOR.
[2018-08-11 21:33] VITALS: BP 161/60
--- NOTE | 2018-08-11 22:05 | NUR ---
PT WITH SITE OF THE TUNNEL CATH TO THE RT CHEST ANYI,NO DRESSING,PT WITH LT SIDE WEAKNESS AND DEFORMED,HAS A F/C TO GRAVITY WITH BRI URINE OUTPUT,HL TO THE RT ARM WITH THE SITE PATENT AND INTACT,CALL LIGHT EASY REACHED AND WILL CONTINUE TO MONITOR.
[2018-08-12 05:24] VITALS: BP 168/62
--- NOTE | 2018-08-12 06:22 | NUR ---
PT HAD A RESTING NIGHT KEPT CLEAN AND DRY TO TOUCH,NO CHANGE AT THIS TIME,WILL CONTINUE TO MONITOR.
[2018-08-12 06:31] LABS: BASOPHIL % 0.2 % (0-2); PLATELET COUNT 337 x10^3mcL (130-400)
[2018-08-12 07:12] LABS: RED CELL DISTRIBUTION WIDTH 15.5 % (11.5-14.5)
--- NOTE | 2018-08-12 07:15 | NUR ---
RECEIVED PATIENT SLEEPING AROUSABLE, NO DISTRESS NOTED. TELE #48 SR, HR 62 NOTED. IV TO RFA INTACT AND SL NOTED. CALL LIGHT IN REACH.
[2018-08-12 07:27] LABS: CALCIUM 8.1 mg/dL (8.5-10.1); CARBON DIOXIDE 25.4 mmol/L (21-32); PHOSPHOROUS 4.4 mg/dL (2.5-4.9); POTASSIUM SERUM 4.2 mmol/L (3.5-5.1)
[2018-08-12 07:41] LABS: CREATININE SERUM 5.6 mg/dL (0.6-1.0)
--- NOTE | 2018-08-12 08:22 | NUR ---
PHYSICAL THERAPY DAILY NOTES CO-SIGN All documentation done by the Dye Padder Operator for 08/12/18 has been reviewed. I agree with the documentation. Reviewed/Co-Signed by: Kiah Stone PT Documentation Done by:CAROLE ESCOBEDO PTA FOR THE DATE 08/11/18
[2018-08-12 09:24] VITALS: BP 150/60
--- NOTE | 2018-08-12 09:44 | NUR ---
PATIENT RESTING IN BED CALM, NO COMPLAIN. ADMINISTERED LASIX IV AND CIPRO IVPB INFUSING TO RFA PATENT. NEEDS MET. CALL LIGHT IN REACH, RE-INFORCED NPO WAITING FOR SURGEON TO SEE PATIENT. PATIENT STATED HUNGRY. CALL LIGHT IN REACH.
--- NOTE | 2018-08-12 10:57 | NUR ---
PATIENT RESTING IN BED UPDATE SURGICAL TIME AT 1330 PER OR. SOM WIPE PROVIDED. CHANGE NEW GOWN. REPOSITION UP IN BED. CALL LIGHT IN REACH.
--- NOTE | 2018-08-12 11:20 | NUR ---
PATIENT WALKING WITH PT IN HALLWAY USES GEORGINA-WALKER PATIENT TOLERATED WELL. BACK TO ROOM SIT UP IN CHAIR. CALL LIGHT IN REACH.
[2018-08-12 12:29] VITALS: BP 179/72
--- NOTE | 2018-08-12 12:50 | NUR ---
PAGE FOR BP 179/72, HR 63, PATIENT ASYMPTOMATIC. NPO FOR SURGERY UNABLE TO GAVE ORAL BP MEDS. WAITING FOR CALL BACK.
--- NOTE | 2018-08-12 13:03 | NUR ---
ASSISTING PATIENT FROM CHAIR TO BED, OR NURSE HERE FOR PATIENT. CALL [employer] INFORM PATIENT OFF FLOOR TO OR AT THIS TIME.
[2018-08-12 14:40] VITALS: BP 186/71
--- NOTE | 2018-08-12 14:40 | NUR ---
RECEIVED PATIENT FROM RECOVERY, AWAKE/ALERT, DENIES PAIN. NO ACUTE DISTRESS NOTED. LEFT CHEST PERMCATH WITH DRESSING CDI, SMALL BANDAID TO COLAR BONE NOTED. VSS. CONT TO MONITOR. [facility] DIALYSIS NURSE WAS MADE AWARE PATIENT HAS ACCESS FOR DIALYSIS PER [facility] WILL SEND HER NURSE OUT.
--- NOTE | 2018-08-12 15:38 | NUR ---
P.T. NOTES AFTER MULTIPLE ATTEMPTS PATIENT REFUSED TO BE SEEN BY P.T., ALSO PER NURSING PATIENT WILL BE GETTING A CATH PROCEDURE DONE LATE IN THE AFTERNOON.
[2018-08-12 16:30] VITALS: BP 149/54
--- NOTE | 2018-08-12 16:31 | NUR ---
PATIENT RESTING IN BED ON DIALYSIS AT THIS TIME, NO COMPLAIN. APPLESAUCE AND JELLO PROVIDED PER REQUESTED. BP 149/54, HR 56 CONT TO MONITOR.
--- NOTE | 2018-08-12 17:15 | NUR ---
PATIENT RESTING IN BED EYES CLOSED. DIALYSIS IN PROGRESS. HELD HYDRALAZINE PO. NEEDS MET. CONT TO MONITOR.
--- NOTE | 2018-08-12 18:26 | NUR ---
ASSISTING PATIENT UP FOR HER DINNER, DIALYSIS STILL IN PROGRESS. HEPARIN 10,000 UNITS GIVEN TO DIALYSIS NURSE. PATIENT EATING HER DINNER. NO COMPLAIN. CONT TO MONITOR.
--- NOTE | 2018-08-12 19:50 | NUR ---
RECEIVED PT FROM DAYSHIFT NURSE. PT IS A/O X 4. ON TELE# 48, SR. LUNG SOUNDS, CTA. ON 2L O2. O2 SAT = 96%. BOWEL SOUNDS ACTIVE IN ALL QUADRANTS. NUNEZ CATHETER IN PLACE. DRAINING CLEAR YELLOW URINE. PT HAS L SIDED WEAKNESS, L ARM HEMIPARALYSIS. SKIN IS INTACT. DRESSING ON R CHEST IS CDI WITH DERMABOND. IV CATH TO RFA IS INTACT. WILL CONTINUE TO MONITOR.
[2018-08-12 20:36] VITALS: BP 150/50
--- NOTE | 2018-08-13 02:33 | NUR ---
PT SEEN SLEEPING IN BED. BREATHING IS EVEN AND UNLABORED. NO ACUTE DISTRESS NOTED. WILL CONTINUE TO MONITOR.
[2018-08-13 05:52] VITALS: BP 151/70
--- NOTE | 2018-08-13 06:19 | NUR ---
PT SEEN ASLEEP. BREATHING IS EVEN AND UNLABORED. NO ACUTE DISTRESS NOTED AT THIS TIME. EMPTIED NUNEZ CATHETER, OUTPUT = 250ML. NO SIGNIFICANT CHANGES THROUGHOUT THE SHIFT. WILL ENDORSE CONTINUITY OF CARE TO DAYSHIFT NURSE.
[2018-08-13 06:46] LABS: BASOPHIL % 0.6 % (0-2); PLATELET COUNT 391 x10^3mcL (130-400)
[2018-08-13 06:50] LABS: RED CELL DISTRIBUTION WIDTH 15.3 % (11.5-14.5)
[2018-08-13 07:06] LABS: CALCIUM 8.1 mg/dL (8.5-10.1); CARBON DIOXIDE 25.5 mmol/L (21-32); CREATININE SERUM 3.9 mg/dL (0.6-1.0); MAGNESIUM 1.8 mg/dL (1.8-2.4); PHOSPHOROUS 4.6 mg/dL (2.5-4.9); POTASSIUM SERUM 3.3 mmol/L (3.5-5.1)
--- NOTE | 2018-08-13 07:29 | NUR ---
ENDORSED CARE TO DAYSHIFT NURSES, DOUGIE-KEISHA AND NATALI
--- NOTE | 2018-08-13 07:32 | NUR ---
ENDORSED CARE TO DAYSHIFT NURSES, DOUGIE-KEISHA AND FLAVIA
--- NOTE | 2018-08-13 07:58 | NUR ---
PHYSICAL THERAPY DAILY NOTES CO-SIGN All documentation done by the Reservations Manager for 08/13/18 has been reviewed. I agree with the documentation. Reviewed/Co-Signed by: Kiah Stone PT Documentation Done by:CAROLE ESCOBEDO PTA COSIGN FOR 08-12-18
--- NOTE | 2018-08-13 08:00 | NUR ---
RECEIVED PATIENT RESTING IN BED COMFORTABLY A/O X4, CLEAR SPEECH, DENIES COSME OR DIZZINESS. TELE # [address], DENIES CHEST PAIN. BREATHING EVEN UNLABBORED ON RA, DENIES SOB, NO DISTRESS NOTED. PATIENT WITH LEFT UPPER CHEST PERMACATH WITH DSG CDI. NUNEZ CATH IN PLACE DRAINING YELLOW URING TUBING FREE OF KINKS BAG IS OFF FLOOR. IV TO RFA H/L INTACT AND PATIENT. PATIENT DENIES ANY PAIN. PATIENT IS CALM WITH CARE. INSTRUCTED TO CALL FOR ASSISTANCE IF NEEDED. SAFETY PRECAUTIONS MAINTAINED. WILL MONITOR.
[2018-08-13 09:19] VITALS: BP 151/70
[2018-08-13] MEDS ORDERED: COUMADIN5 MG PO (11:20)
[2018-08-13] MEDS ORDERED: CIPRO500 MG PO (11:26)
[2018-08-13] MEDS ORDERED: LAC PO (11:26)
--- NOTE | 2018-08-13 12:25 | NUR ---
PATIENT RESTING COMFORTABLY IN BED NO DISTRESS NOTED, DUE MEDICATION GIVEN. ALL NEEDS ATTENDED TO. SAFETY PRECAUTIONS MAINTAINED. WILL MONITOR.
--- NOTE | 2018-08-13 12:46 | NUR ---
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 9.2L, Hct 29L Meds: Antivert, Cephulac, Flomax, Lipitor, Mylanta Gas, Protonix, Zofran Diet: Clear liquid diet PO Intake: (08/13) 0% of breakfast. 100% of 2 meals from previous days Ht: 175.26cm, 69 in Wt:64.864kg, 142# 146 (bed scale) BMI: 21.1 kg/m2 IBW: 136 %IBW: 95 UBW: 140-145 Age: 81 Food Allergies: NKA Skin: Intact Brandon: 20 Edema: None GI: Last BM: 08/11/18 Per H&P: Patient was recently admitted to [facility] and discharged on 08/04/18. He was diagnosed with retroperitoneal hemorrhage due to his pancreatic pseudocyst. The patient was improving and was discharged after being cleared by GI and surgery. Last Thursday, the patient went to his PCP and got a CT abd/pelv w/o contrast and directed the patient to go to the hospital. He went to [facility] where he got another CT in which the hospital wanted to admit the patient. He declined admission. Last night he was eating [employer] for dinner and shortly after he had abdominal pain with nausea and vomiting. He vomited 5 times at home and continued to vomit in the hospital. Last bowel movement was last night. Per bed huddles: Pt was going to be discharged yesterday until he vomited 7 times and said he was in a lot of pain. The mentioned that the pt will be transferred to [facility] today for further evaluation. Problem with: N: yes V: yes (7x in the morning) D: yes C: no Problems with: Chewing: None Swallowing: None Current appetite: None due to pain and N/V Recent wt change: none %wt change: none Vitamin/Supplement use: Vit D 1x/day Special diet at home: Regular, states was taking an appetite increasing medication (did not mention the name of medication) Physical activity: walks daily w/walker Education: Notified about clear liquid diet, pt's stated that he was only able to keep down a small amount of the Ensure for dinner. answered most of the questions because the pt was in a great amount of pain. Estimated Nutritional Needs Based on actual body weight 64.864kg Energy: 1621-2269kcal/d (RMR X) (25-35kcal/kg due to geriatric pt) Protein: 78-84g/d (g/kg)- (1.2-1.3g/kg due to geriatric pt) Fluid: 1621-2269ml/d (1 ml/kcal) or per doctor Nutrition Diagnosis Inadequate oral intake r/t altered GI function 2/2 pancreatitis aeb constant n/v and po intake <75%. Intervention 1. Continuation with the clear liquid diet and check for signs of advancement. Monitor/Evaluate Goal: PO intake at least 75% of estimated needs Monitor: PO intake, Labs, GI symptoms, tolerance of clear liquid diet and wt MR F/U 08/16-08/18
--- NOTE | 2018-08-13 12:47 | NUR ---
Intervention 1. Continuation with the clear liquid diet and check for signs of advancement.
--- NOTE | 2018-08-13 13:37 | NUR ---
Follow-up Nutrition Assessment- Isatuher Villegas Dx: Severe Sepsis, Pulmonary Edema Labs: Na 138, K 3.3L, Glucos. 132H, Creat 3.9H, Ca 8.1L, Hgb 8.5L, Hct 25L Meds: Apresoline, Cipro I.V. Colace, Dextrose 50% water, Dulcolax, Humulin, Lactulose syrup, Lasix, Milk of Magnesia, Precision PCX Blood Glucose Strips, Synthroid, Xopenex, Zofran Diet: Renal PO intake: NPO as of 08/12, today (08/13/18) pt states ate an entire sandwich for breakfast Weights: 08/07/18-128#, 08/08/18-122#, 08/13/18-118# (all bed scale) 08/13/18- 124# bed scale @ 11:15am Skin: Intact Brandon: 19 Last BM: How is your appetite going? Pt states appetite is good Do you have any N/V/D/C? Pt states does not How much of your food are you eating? Pt states is eating her entire plate Wt loss? Pt has gained wt since since 08/08/18 according to listed bed scales Complaints about food? Pt has no complaints Estimated Nutritional Needs based on actual body wt 56kg Energy: 1306-1523kcal/d (30-35 kcal/kg for hemodialysis) Protein: 67-72g/d (1.2-1.3g/kg for hemodialysis) Fluid: Strict I & O 1200ml/d or per doctor Nutrition Diagnosis Altered nutrition related labs r/t endocrine dysfunction AEB elevated BG lab values. Intervention 1. Recommend add CCHO to current Renal diet. Monitor/Evaluate Previous goal: PO intake at least 75% of estimated needs- varies from day to day Goal: PO intake at least 75% of estimated needs- ate entire breakfast today Monitor: PO intake, Labs, tolerance of diet and wt F/U MR 08/16-08/18.
--- NOTE | 2018-08-13 13:37 | NUR ---
Intervention 1. Recommend add CCHO to current Renal diet.
--- NOTE | 2018-08-13 13:55 | NUR ---
PATIENT RESTING IN BED COMFORTABLY NO DISTRESS NOTED, DUE MEDICATION GIVEN. ALL NEEDS ATTENDED TO. SAFETY PRECAUTIONS MAINTAINED.
[2018-08-13 15:12] VITALS: BP 136/56
--- NOTE | 2018-08-13 16:04 | NUR ---
PATIENT SITTING UP IN CHAIR AT BEDSIDE, NO DISTRESS NOTED. SAFETY PRECAUTIONS MAINTAINED. WILL MONITOR.
--- NOTE | 2018-08-13 16:06 | NUR ---
PATIENT STATED THAT SHE IS GOING TO BE DISCHARGED AND DO NOT WANT TO PARTICIPATE ON PHYSICAL THERAPY SESSION
[2018-08-13 17:09] VITALS: BP 146/53
--- NOTE | 2018-08-13 17:10 | NUR ---
PATIENT STABLE FOR DISCHARGE HOME. DISCHARGE INSTRUCTIONS, PRESCRIPTION, BELONGINGS LIST AND EDUCATION REVIEWED WITH PATIENT. ALL QUESTIONS AND CONCERNS ADDRESSED. IV TO RFA H/L. INSTRUCTED PATIENT TO CALL AND NOTIFY STAFF WHEN ARRIVES TO TAKE PATIENT HOME. ALL NEEDS ATTENDED TO. SAFETY PRECAUTIONS MAINTAINED. WILL MONITOR.
--- NOTE | 2018-08-13 18:00 | NUR ---
PATIENT STABLE FOR DISCHARGE HOME. PATIENT ASSISTED DOWN TO LOBBY VIA HER OWN PERSONAL WHEELCHAIR ACCOMPANIED BY NURSE AID AND . ALL PERSONAL BELONGINGS SENT HOME WITH PATIENT.
== END 2018-08-13 18:10 | disposition home or self-care (01) | DRG 252 ==
LOC: ED 19:51 → DU 23:02 → IC 08-07 06:56 → DU 08-08 16:49
PROVIDERS: Emergency Medicine; General Practice; Surgery; ADMIT Internal Medicine
PROC: 05HM33Z Insertion of Infusion Device into Right Internal Jugular Vein, Percutaneous Approach (ICD-10-PCS; 2018-08-12)
PROC: B543ZZA Ultrasonography of Right Jugular Veins, Guidance (ICD-10-PCS; 2018-08-12)
PROC: 03723ZZ Dilation of Innominate Artery, Percutaneous Approach (ICD-10-PCS; principal; 2018-08-12 13:00)
DX: T82.7XXA Infection and inflammatory reaction due to other cardiac and vascular devices, implants and grafts, initial encounter (principal); A41.51 Sepsis due to Escherichia coli [E. coli]; N18.6 End stage renal disease; I50.43 Acute on chronic combined systolic (congestive) and diastolic (congestive) heart failure; E43 Unspecified severe protein-calorie malnutrition; J96.21 Acute and chronic respiratory failure with hypoxia; I13.2 Hypertensive heart and chronic kidney disease with heart failure and with stage 5 chronic kidney disease, or end stage renal disease; E87.1 Hypo-osmolality and hyponatremia; N17.9 Acute kidney failure, unspecified; N39.0 Urinary tract infection, site not specified; E87.3 Alkalosis; I69.354 Hemiplegia and hemiparesis following cerebral infarction affecting left non-dominant side; E11.65 Type 2 diabetes mellitus with hyperglycemia; E11.22 Type 2 diabetes mellitus with diabetic chronic kidney disease; R13.11 Dysphagia, oral phase; I48.0 Paroxysmal atrial fibrillation; I27.20 Pulmonary hypertension, unspecified; E03.9 Hypothyroidism, unspecified; D63.1 Anemia in chronic kidney disease; Z99.2 Dependence on renal dialysis; Z68.22 Body mass index [BMI] 22.0-22.9, adult; Z79.84 Long term (current) use of oral hypoglycemic drugs; Z85.520 Personal history of malignant carcinoid tumor of kidney
CPT/HCPCS: 36600; 82962; 83880; 84439; 87804; 97110-GP; 97116-GP; 97530-GP; A4301; A4719; J0744; J0885-EC; J1200; J1644; J1940; J2001; J2250; J2405; J2543; J2916; J3475; J3490; J7030; J7050; Q0092

== ENCOUNTER 2018-08-27 13:25 | Inpatient (IN) | payer OTHER ==
[~2018-08-27] VITALS: Ht 157.5 cm; Wt 63.5 kg
[~2018-08-27 13:25] MED LIST changes: +CIPRO500 MG PO; +COUMADIN5 MG PO
[2018-08-27 13:31] VITALS: Ht 157.5 cm; Wt 63.5 kg
--- NOTE | 2018-08-27 13:35 | NUR ---
EKG IN PROGRESS IN TRIAGE.
[2018-08-27 14:57] LABS: BASOPHIL % 0.9 % (0-2); PLATELET COUNT 368 x10^3mcL (130-400)
[2018-08-27 15:03] LABS: RED CELL DISTRIBUTION WIDTH 17.2 % (11.5-14.5)
[2018-08-27 15:07] LABS: CALCIUM 8.8 mg/dL (8.5-10.1); CARBON DIOXIDE 32.3 mmol/L (21-32); CREATININE SERUM 1.9 mg/dL (0.6-1.0); POTASSIUM SERUM 3.5 mmol/L (3.5-5.1)
[2018-08-27 15:14] LABS: ALBUMIN 3.4 g/dL (3.4-5.0); BILIRUBIN TOTAL 0.45 mg/dL (0.20-1.00); TOTAL PROTEIN, SERUM 7.5 g/dL (6.4-8.2)
--- NOTE | 2018-08-27 15:48 | NUR ---
PT IN ED FOR SOB ONSET THIS AM AFTER DIALYSIS. PT AAO4, IN NO DISTRESS AT THIS TIME. SON AT BEDSIDE.
--- NOTE | 2018-08-27 17:04 | NUR ---
[place] IN POS[place] OF COMFORT, RESP E/U, NO DISTRESS.
--- NOTE | 2018-08-27 18:07 | NUR ---
PT AAO4, RESP E/U, AT BEDSIDE.
[2018-08-27] MEDS ORDERED: HYDRALAZINE HY100 MG PO (18:16)
[2018-08-27] MEDS ORDERED: FERROUS SULFAT325 M2 PO (18:16)
[2018-08-27] MEDS ORDERED: ADALAT CC30 MG PO (18:16)
[2018-08-27] MEDS ORDERED: VITAMIN D32000 I2 PO (18:16)
[2018-08-27] MEDS ORDERED: LEVOTHYROXIN0.125 M2 PO (18:17)
[2018-08-27] MEDS ORDERED: CALCIUM ACETAT667 M2 PO (18:17)
[2018-08-27] MEDS ORDERED: NOVOLOG FLEX100 U/M1 SC (18:17)
[2018-08-27] MEDS ORDERED: LEXAPRO10 MG PO (18:17)
[2018-08-27] MEDS ORDERED: LIPI10 (18:18)
[2018-08-27 18:19] LABS: MAGNESIUM 1.9 mg/dL (1.8-2.4); PHOSPHOROUS 1.4 mg/dL (2.5-4.9)
[2018-08-27] MEDS ORDERED: XANAX0.25 MG PO (18:19)
[2018-08-27] MEDS ORDERED: RENA-VITE RX1 TAB PO (18:19)
[2018-08-27 18:20] LABS: CHOLESTEROL/HDL RATIO 2.9
[2018-08-27 18:28] LABS: T3 TOTAL 0.08 ng/mL
[2018-08-27 18:41] LABS: FREE T4 0.64 ng/dL (0.76-1.46); FREE THYROXINE INDEX 1.7 ug/dL (1.4-4.5); T4(THYROXINE) 5.5 ug/dL (4.7-13.3)
--- NOTE | 2018-08-27 18:59 | NUR ---
REPORT GIVEN TO CHRISTIANA VALDES TO ASSUME CARE.
--- NOTE | 2018-08-27 19:20 | NUR ---
RECEIVED PT FROM DAY SHIFT RN. PT NEW ADMIT FROM THE ER. PT IS AA&O X4 AND ABLE TO FOLLOW COMMANDS. PT DENIES ANY SHORTNESS OF BREATH LUNGS SOUNDS ARE DIMINISHED UPON AUSCULTATION. PT CURRENTLY COMPLAINS OF MINOR CHEST PAIN. PT HAS A LEFT HEMODIALYSIS ACCESS WITH DRESSING CLEAN DRY AND INTACT. PT IS ON ROOM AIR. TELE #14 SINUS RHYTHM. HR 69. WILL CONTINUE TO MONITOR.
[2018-08-27 22:20] VITALS: BP 121/42
[2018-08-27 22:41] VITALS: BP 155/63
[2018-08-28 05:08] VITALS: BP 141/56
[2018-08-28 06:00] LABS: CALCIUM 7.9 mg/dL (8.5-10.1); CARBON DIOXIDE 33.7 mmol/L (21-32); CREATININE SERUM 2.7 mg/dL (0.6-1.0); PHOSPHOROUS 2.2 mg/dL (2.5-4.9); POTASSIUM SERUM 3.9 mmol/L (3.5-5.1)
--- NOTE | 2018-08-28 06:31 | NUR ---
PT SLEPT IN INTERVALS THROUGHOUT THE NIGHT. PT DENIES ANY CHEST PAINA OR SHORTNESS OF BREATH AT THIS TIME. PT DENIES ANY PAIN AT THIS TIME. SAFETY MEASURES ARE IN PLACE. CALL LIGHT IS WITHIN REACH. WILL ENDORSE TO THE DAY SHIFT RN.
--- NOTE | 2018-08-28 07:10 | NUR ---
PT RECIEVED FROM THE DAY SHIFT RN. PT IS ALERT AND ORIENTED X3, NO ACUTE DISTRESS NOTED, NO SOB NOTED. PT IS CALM AND COOPERATIVE WITH CARE. SAFETY AND COMFORT MEASURES MAINTAINED, BED IN LOWEST POSITION, CALL LIGHT WITHIN REACH.
[2018-08-28 07:47] VITALS: BP 157/55
[2018-08-28 07:53] LABS: PLATELET COUNT 271 x10^3mcL (130-400)
[2018-08-28 08:10] LABS: RED CELL DISTRIBUTION WIDTH 17.8 % (11.5-14.5)
[2018-08-28 12:18] VITALS: BP 166/73
--- NOTE | 2018-08-28 13:10 | NUR ---
RECEIVED BEDSIDE REPORT FROM KEISHA VILLA; PT A/A/O X 4, CALM, COOPERATIVE. DENIES CHEST PAIN OR DISCOMFORT AT THIS TIME. NO ACUTE RESPIRATORY DISTRESS NOTED. SIDE RAILS UP X 2, BED IN LOW POSITION, CALL LIGHT WITHIN REACH. WILL CONTINUE TO MONITOR.
[2018-08-28] MEDS ORDERED: COUMADIN5 MG PO (13:22)
[2018-08-28 14:57] VITALS: BP 161/54
--- NOTE | 2018-08-28 17:10 | NUR ---
PT IN BED, TALKING TO FAMILY MEMBER BY BEDSIDE. PT REMAINS A/A/O X 4, CALM, COOPERATIVE. DENIES CHEST PAIN OR DISCOMFORT AT THIS TIME. NO ACUTE RESPIRATORY DISTRESS NOTED. SIDE RAILS UP X 2, BED IN LOW POSITION. WILL ENDORSE TO NOC SHIFT.
--- NOTE | 2018-08-28 19:00 | NUR ---
RECEIVED PT IN BED COMFORTABLY RESTING.AAOX4.BREATHING EVEN AND UNLABORED.TELE# 14SB ASYMTOMATIC.NO CP NOTED.IV SITE PATENT AND INTACT TO RFA. NOTICED LEFT UPPER CHEST STEPHY CATH,CDI. DENIES ANY PAIN AT THIS TIME. BED IN LOWEST POSITION,CALL LIGHT WITHIN REACH. WILL CONTINUE TO MONITOR.
[2018-08-28 21:19] VITALS: BP 167/73
--- NOTE | 2018-08-29 05:05 | NUR ---
PT APPEARS TO BE SLEEPING.NO DISTRESS NOTED. DENIES PAIN AT THIS TIME.BED IN LOWEST POSITION,CALL LIGHT WITHIN REACH. WILL CONTINUE TO MONITOR.
[2018-08-29 05:26] VITALS: BP 168/74
--- NOTE | 2018-08-29 07:20 | NUR ---
CARE ENDORSED TO DAY NURSE
--- NOTE | 2018-08-29 08:00 | NUR ---
SHIFT ASSESSMENT DONE. PATIENT ALERT/ORIENTED X4; CLEAR SPEECH. TELE#14; SB; HR = 59. DENIED CHEST PAIN. NO RESP DISTRESS ON RA. OLIGURIA. STEPHY CATH TO LT CHEST WALL W/ DRSG INTACT. GENERAL WEAKNESS. USE WHEELCHAIR AT HOME. IVHL'S TO RFA. SITE CLEAN. PULSES PALPABLE. DENIED PAIN. TOLERTED CCHO DIET BREAKFAST. CALL LIGHT IN REACH.
[2018-08-29 09:38] VITALS: BP 115/42
[2018-08-29 09:53] VITALS: BP 113/42
--- NOTE | 2018-08-29 11:48 | NUR ---
DENIED CHEST PAIN. D/C TO HOME PER ORDER. INSTRUCTION GIVEN TO PATIENT AND HER , MR. FORD. PATIENT WOULD FOLLOW UP DR. POWERS, PCP AND CONTINUE HEMODIALYSIS PER SCHEDULE. IV D/C'D. OVER NEEDLE CATHETER INTACT. CONDITION STABLE.
== END 2018-08-29 12:06 | disposition home or self-care (01) | DRG 205 ==
LOC: ED 13:25 → DU 17:48
PROVIDERS: Internal Medicine; ADMIT General Practice
DX: M94.0 Chondrocostal junction syndrome [Tietze] (principal); N17.0 Acute kidney failure with tubular necrosis; I50.43 Acute on chronic combined systolic (congestive) and diastolic (congestive) heart failure; N18.6 End stage renal disease; I13.2 Hypertensive heart and chronic kidney disease with heart failure and with stage 5 chronic kidney disease, or end stage renal disease; E87.1 Hypo-osmolality and hyponatremia; E11.22 Type 2 diabetes mellitus with diabetic chronic kidney disease; Z99.2 Dependence on renal dialysis; Z79.4 Long term (current) use of insulin; D50.8 Other iron deficiency anemias; E83.39 Other disorders of phosphorus metabolism; E78.5 Hyperlipidemia, unspecified; E03.9 Hypothyroidism, unspecified
CPT/HCPCS: 82962; 83880; 84439; J2270; Q0092

== ENCOUNTER 2018-09-04 22:59 | Inpatient (IN) | payer OTHER ==
[~2018-09-04] VITALS: Ht 157.5 cm; Wt 56.0 kg
[~2018-09-04 22:59] MED LIST changes: +ADALAT CC30 MG PO; +CALCIUM ACETAT667 M2 PO; +FERROUS SULFAT325 M2 PO; +HYDRALAZINE HY100 MG PO; +LIPI10; +NOVOLOG FLEX100 U/M1 SC; +RENA-VITE RX1 TAB PO; +VITAMIN D32000 I2 PO; +XANAX0.25 MG PO
[2018-09-04 23:00] VITALS: Ht 157.5 cm; Wt 56.0 kg
[2018-09-04 23:34] LABS: BASOPHIL % 0.4 % (0-2); PLATELET COUNT 216 x10^3mcL (130-400); RED CELL DISTRIBUTION WIDTH 17.6 % (11.5-14.5)
[2018-09-05] VITALS (9 sets, daily range): BP systolic 111–170; BP diastolic 49–73
[2018-09-05 00:04] LABS: CALCIUM 8.6 mg/dL (8.5-10.1); CREATININE SERUM 3.5 mg/dL (0.6-1.0); POTASSIUM SERUM 3.9 mmol/L (3.5-5.1)
[2018-09-05 00:09] LABS: ALBUMIN 3.3 g/dL (3.4-5.0); BILIRUBIN TOTAL 0.4 mg/dL (0.20-1.00); TOTAL PROTEIN, SERUM 7.2 g/dL (6.4-8.2)
[2018-09-05 01:20] LABS: FREE T4 0.8 ng/dL (0.76-1.46); FREE THYROXINE INDEX 2.2 ug/dL (1.4-4.5); T4(THYROXINE) 6.5 ug/dL (4.7-13.3)
[2018-09-05 01:22] LABS: T3 TOTAL 0.4 ng/mL
[2018-09-05 01:25] LABS: MAGNESIUM 2.3 mg/dL (1.8-2.4); PHOSPHOROUS 1.9 mg/dL (2.5-4.9)
[2018-09-05 01:32] LABS: CHOLESTEROL/HDL RATIO 3.1
[2018-09-05 06:38] LABS: BASOPHIL % 0.8 % (0-2); PLATELET COUNT 183 x10^3mcL (130-400)
[2018-09-05 07:18] LABS: CALCIUM 8.5 mg/dL (8.5-10.1); CARBON DIOXIDE 29.3 mmol/L (21-32); CREATININE SERUM 3.6 mg/dL (0.6-1.0); POTASSIUM SERUM 4.2 mmol/L (3.5-5.1)
[2018-09-05 07:45] LABS: RED CELL DISTRIBUTION WIDTH 17.3 % (11.5-14.5)
[2018-09-06 06:03] VITALS: BP 122/56
[2018-09-06 06:22] LABS: BASOPHIL % 0.4 % (0-2); PLATELET COUNT 181 x10^3mcL (130-400)
[2018-09-06 06:50] LABS: RED CELL DISTRIBUTION WIDTH 17.4 % (11.5-14.5)
[2018-09-06 06:56] LABS: CALCIUM 7.9 mg/dL (8.5-10.1); CARBON DIOXIDE 27.2 mmol/L (21-32); PHOSPHOROUS 5.1 mg/dL (2.5-4.9); POTASSIUM SERUM 3.9 mmol/L (3.5-5.1)
[2018-09-06 09:11] VITALS: BP 133/50
[2018-09-06 13:39] VITALS: BP 157/58
[2018-09-06 17:28] VITALS: BP 160/55
[2018-09-06 20:23] VITALS: BP 172/67
[2018-09-06 22:40] VITALS: BP 171/70
[2018-09-07] VITALS (7 sets, daily range): BP systolic 104–163; BP diastolic 54–73
[2018-09-07 06:25] LABS: BASOPHIL % 0.8 % (0-2); PLATELET COUNT 191 x10^3mcL (130-400)
[2018-09-07 06:38] LABS: CALCIUM 7.5 mg/dL (8.5-10.1); CARBON DIOXIDE 28.4 mmol/L (21-32); CREATININE SERUM 2.9 mg/dL (0.6-1.0); POTASSIUM SERUM 3.8 mmol/L (3.5-5.1)
[2018-09-07 06:49] LABS: RED CELL DISTRIBUTION WIDTH 17.2 % (11.5-14.5)
[2018-09-08 05:51] VITALS: BP 146/68
[2018-09-08 06:05] VITALS: BP 139/58
[2018-09-08 06:17] LABS: PLATELET COUNT 204 x10^3mcL (130-400)
[2018-09-08 06:27] LABS: RED CELL DISTRIBUTION WIDTH 16.7 % (11.5-14.5)
[2018-09-08 06:39] LABS: CALCIUM 6.8 mg/dL (8.5-10.1); CARBON DIOXIDE 27.1 mmol/L (21-32); CREATININE SERUM 3.6 mg/dL (0.6-1.0); POTASSIUM SERUM 3.9 mmol/L (3.5-5.1)
[2018-09-08 10:02] VITALS: BP 137/58
[2018-09-08 13:11] VITALS: BP 160/71
[2018-09-08 13:45] VITALS: BP 139/52
== END 2018-09-08 16:00 | disposition home or self-care (01) | DRG 205 ==
LOC: ED 22:59 → DU 09-05 00:50
PROVIDERS: Emergency Medicine; Internal Medicine; ADMIT Family Medicine
DX: M94.0 Chondrocostal junction syndrome [Tietze] (principal); N17.0 Acute kidney failure with tubular necrosis; N18.6 End stage renal disease; E44.1 Mild protein-calorie malnutrition; I12.0 Hypertensive chronic kidney disease with stage 5 chronic kidney disease or end stage renal disease; I69.354 Hemiplegia and hemiparesis following cerebral infarction affecting left non-dominant side; I16.0 Hypertensive urgency; E11.22 Type 2 diabetes mellitus with diabetic chronic kidney disease; E83.39 Other disorders of phosphorus metabolism; D64.9 Anemia, unspecified; I27.20 Pulmonary hypertension, unspecified; Z99.2 Dependence on renal dialysis; Z90.5 Acquired absence of kidney; Z79.4 Long term (current) use of insulin; Z79.82 Long term (current) use of aspirin; Z68.24 Body mass index [BMI] 24.0-24.9, adult; Z85.520 Personal history of malignant carcinoid tumor of kidney
CPT/HCPCS: 82962; 83880; 84439; 97110-GP; 97116-GP; 97530-GP; A9500; J0360; J1644; J2785; J3490; J7030

== ENCOUNTER 2019-01-11 17:06 | Inpatient (IN) | payer OTHER ==
[~2019-01-11] VITALS: Ht 152.4 cm; Wt 51.0 kg
[2019-01-11 17:15] VITALS: Ht 152.4 cm; Wt 51.0 kg
--- NOTE | 2019-01-11 17:15 | NUR ---
PT [place] AND [place] [employer] FOR SI AND PLACED ON 5150 BY [place] [employer] OFFICER ELIZABETH. PER PT'S DAUGHTER, PT'S SON WAS ARGUING WITH PT'S EARLIER TODAY, AND PT CALLED 911 STATING SHE WANTED TO HARM HERSELF. PT STS SHE HAS A PLAN TO "CUT MY VEINS". PT C/O HEADACHE "FROM CRYING", PLACED ON FULL CM, CRYING UPON ASSESSING, IN POSITION OF COMFORT, CALL LIGHT WITHIN REACH. DAUGHTER AT BEDSIDE.
--- NOTE | 2019-01-11 17:15 | NUR ---
PT PLACED IN GOWN ON FULL CM, PERSONAL BELONGINGS GIVEN TO DAUGHTER, STS SHE WILL TAKE PT'S PERSONAL BELONGINGS HOME. ORIGINAL 5150 PLACED IN PT'S CHART. PT IN FULL VIEW FROM NURSES STATION, CALL LIGHT WITHIN REACH, DAUGTHER AT BEDSIDE.
--- NOTE | 2019-01-11 17:34 | NUR ---
DR HARRISON AT BEDSIDE FOR MSE.
[2019-01-11 17:48] LABS: BASOPHIL % 0.9 % (0-2); PLATELET COUNT 232 x10^3mcL (130-400); RED CELL DISTRIBUTION WIDTH 15.5 % (11.5-14.5)
[2019-01-11 18:00] LABS: CALCIUM 9.3 mg/dL (8.5-10.1); CARBON DIOXIDE 25.1 mmol/L (21-32); CHLORIDE SERUM 99 mmol/L (98-107); CREATININE SERUM 3.1 mg/dL (0.6-1.0); GFR1 16 mL/min; GLUCOSE SERUM 206 mg/dL (74-106); SODIUM SERUM 136 mmol/L (136-145)
[2019-01-11 18:07] LABS: ALBUMIN 3.6 g/dL (3.4-5.0); ALKALINE PHOSPHATASE 62 U/L (46-116); ALT/SGPT 16 U/L (14-59); AST/SGOT 12 U/L (15-37); BILIRUBIN TOTAL 0.4 mg/dL (0.20-1.00); T4(THYROXINE) 10.1 ug/dL (4.7-13.3); TOTAL PROTEIN, SERUM 6.8 g/dL (6.4-8.2)
--- NOTE | 2019-01-11 18:16 | NUR ---
PT ASSISTED ONTO BEDSIDE TO PROVIDE URINE SAMPLE.
[2019-01-11 19:05] LABS: microscopic required? YES; urine erythrocyte NEGATIVE (NEGATIVE)
--- NOTE | 2019-01-11 19:11 | NUR ---
PT'S DAUGHTER FRANCISCO PATE PERSONAL CELL [phone] PT'S DAUGHTER YOLANDE PLATT PERSONAL CELL [phone]
[2019-01-11 19:12] LABS: AMPHETAMINE QUAL UR NONE DETECTED (See below)
--- NOTE | 2019-01-11 19:22 | NUR ---
PT REPORT GIVEN FROM DAY NURSE ECHO, I WILL NOW ASSUME PRIMARY CARE OF PT
--- NOTE | 2019-01-11 19:22 | NUR ---
REPORT GIVEN TO KEISHA BORJAS TO ASSUME CARE OF PT.
--- NOTE | 2019-01-11 19:31 | NUR ---
PT REQUESTING MEAL, PER DR HUNTER CHOUDHARY TO GIVE PT TUNA SANDWICH AND DRINK.
--- NOTE | 2019-01-11 19:38 | NUR ---
PT RESTING IN ED GURNEY IN POSITION OF COMFORT. SAFETY PRECAUTIONS ARE IN PLACE. ALL PT BELONGINGS ARE PLACED IN RADIO ROOM FOR SAFETY. PT IS IN VIEW OF NURSES STATION. PT EATING A [place]. PT RESPS ARE E/U. NO ACD NOTED
--- NOTE | 2019-01-11 21:30 | NUR ---
PT CONSULT WITH TELE PSYCH IN PROCESS.
--- NOTE | 2019-01-11 23:14 | NUR ---
PT RESTING IN ED GURNEY. TIFF CHEST RISE AND FALL NOTED. PT IS IN SIGHT OF NURSES STATION. PT DENIES ANY PAIN AT THIS TIME. NO ACD NOTED
[2019-01-12] VITALS (7 sets, daily range): BP systolic 116–185; BP diastolic 43–86
--- NOTE | 2019-01-12 01:06 | NUR ---
PT IS ASLEEP IN ED GURNEY. PT IS EASILY AROUSABLE. TIFF CHEST RISE AND FALL NOTED. PT GURNEY IN LOWEST POSITION WITH BEDRAILS RAISED. NO ACD NOTED
--- NOTE | 2019-01-12 02:12 | NUR ---
PT REPORT GIVEN TO JOSE ANGEL UPSTAIRS ON TELE FLOOR FOR ROOM 244B. PT BEING ADMITTED FOR FURTHER CARE.
--- NOTE | 2019-01-12 02:27 | NUR ---
RECEIVED FROM ED.PUT IN ROOM 244B AND MADE COMFORTABLE.TELE 10 ASSIGNED.WILL ADMIT.
--- NOTE | 2019-01-12 03:02 | NUR ---
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
--- NOTE | 2019-01-12 04:32 | NUR ---
ROCEPHIN INITIATED,NO INCIDENT.IV SITE RFA EXTENSION TUBING APPLIED.TKO IV/FLUSH ONLY.HD PATIENT.
[2019-01-12 06:14] LABS: BASOPHIL % 0.7 % (0-2); PLATELET COUNT 217 x10^3mcL (130-400)
[2019-01-12 06:31] LABS: CALCIUM 8.7 mg/dL (8.5-10.1); CARBON DIOXIDE 26.4 mmol/L (21-32); CREATININE SERUM 3.5 mg/dL (0.6-1.0); MAGNESIUM 2.5 mg/dL (1.8-2.4); PHOSPHOROUS 3.5 mg/dL (2.5-4.9); POTASSIUM SERUM 5.3 mmol/L (3.5-5.1)
--- NOTE | 2019-01-12 06:43 | NUR ---
PATIENT HEPLOCK INTACT.SITTER AT BEDSIDE FOR SAFETY.WILL ENDORSE TO NEXT SHIFT.
[2019-01-12 06:47] LABS: RED CELL DISTRIBUTION WIDTH 15.7 % (11.5-14.5)
--- NOTE | 2019-01-12 07:50 | NUR ---
SEEN IN BED WITH EYES CLOSHED, EASILY TO AROUSE, AAOX4. NO RESP DISTRESS NOTED. APPEARS DEPRESSED. VERBAL RESPONDED IN ESTONIAN AND SOME CHINESE. DENIES PAIN. ON TELE#10 NSR. SITTER 1:1 AT BEDSIDE. DENIES ANY SUICIDAL IDEATION AT THIS TIME. S/L TO RFA INTACT AND PATENT. NOTED TUNNEL CATHETER TO LEFT CHEST WALL WITH DRSG CDI. NO EDEMA NOTED. STATED STILL ABLE TO VOID. REORIENTATION PROVIDED. CALL LIGHT PLACED WITHIN EASY REACH. SIDERAILS UP X2.
--- NOTE | 2019-01-12 08:30 | NUR ---
PATIENT'S DAUGHTER AT BEDSIDE. UPDATED CURRENT CONDITION AND PLAN OF CARE. PER PATIENT'S DAUGHTER YOLANDE STATED THAT PATIENT JUST HAD AV SHUNT IMPLANTED ABOUT A MONTH AGO ON RIGHT ARM. IV CATHETER TO RIGHT FOREARM REMOVED WITH CATHETER INTACT, DRSG APPLIED. NO BP OR BLOOD DRAW TO RIGHT ARM. SCHEDULED AM MEDS GIVEN. PATIENT TOLERATED PO WELL.
--- NOTE | 2019-01-12 10:00 | NUR ---
DOCTOR CERDA AND MEDICAL TEAM AT BEDSIDE FOR AM ROUND. PATIENT MADE AWARE OF PLAN OF CARE.
--- NOTE | 2019-01-12 12:33 | NUR ---
SITTING UP IN CHAIR HAVING LUNCH. NO ANY DISTRESS NOTED ON ROOM AIR. DENIES PAIN OR HEADACHE. BP 185/86, HR 61, HYDRALAZINE 100MG PO GIVEN. WILL CONTINUE TO MONITOR.
--- NOTE | 2019-01-12 16:32 | NUR ---
HEMODIALYSIS ONGOING AT BEDSIDE. NO ANY DISTRESS NOTED.
--- NOTE | 2019-01-12 18:34 | NUR ---
HEMODIALYSIS DONE, NET OUTPUT 1.5LITERS. NO ANY DISTRESS NOTED. TYLENOL 650MG PO GIVEN FOR HEADACHE.
--- NOTE | 2019-01-12 19:15 | NUR ---
CARE ASSUMED FROM OUTGOING RN. PT RESTING COMFORATBLY IN BED. NO ACUTE DISTRESS NOTED. SITTER AT BEDSIDE. EVEN AND UNLABORED RESPIRATIONS ON RA. ON TELE# 10 READING SR 73. IVL INTACT. DIALYSIS COMPLETED EARLIER TODAY WITH 1.5L OUTPUT. PT STATES HEADACHE IS RESOLVING AFTER MEDICATION GIVEN. AV SHUNT TO R WRIST AND LEFT CHEST TUNNEL CATH INTACT. BED IN LOWEST POSITION. SIDE RAILS UPX2. CALL LIGHT WITHIN REACH. WILL CONTINUE TO MONITOR.
--- NOTE | 2019-01-13 00:11 | NUR ---
PT BLOOD SUGAR 43. RECHECKED 54. COUPLE OF APPLE JUICE PROVIDED. D50 IVP ADMINISTERED. MADE AWARE. BLOOD SUGAR RECHECKED 175. WILL CONTINUE TO MONITOR.
--- NOTE | 2019-01-13 00:15 | NUR ---
MADE AWARE BY MT PT HEART RHYTHM GOING IN/OUT JUNCTIONAL RHYTHM. MADE AWARE. PT HAD HYPOGLYCEMIC EPISODE, D50 ADMINISTERED. NO C/O CHEST PAIN/PRESSURE. MADE AWARE. WILL CONTINUE TO MONITOR.
[2019-01-13 05:52] VITALS: BP 167/62
[2019-01-13 06:23] LABS: BASOPHIL % 0.6 % (0-2); PLATELET COUNT 212 x10^3mcL (130-400)
[2019-01-13 06:30] LABS: CALCIUM 8.5 mg/dL (8.5-10.1); CARBON DIOXIDE 27.4 mmol/L (21-32); CREATININE SERUM 2.5 mg/dL (0.6-1.0); PHOSPHOROUS 3.6 mg/dL (2.5-4.9); POTASSIUM SERUM 4.1 mmol/L (3.5-5.1)
--- NOTE | 2019-01-13 06:30 | NUR ---
PT SLEPT COMFORTABLY IN INTERVALS THROUGHOUT THE SHIFT. SITTER AT BEDSIDE. ALL NEEDS TENDED TO AND MET. ALL SCHEDULED MEDICATIONS GIVEN. ON TELE #10 READING SB 55, HAD AN EPISODE OF JUNCTIONAL RHYTHM. IVL PATENT AND INTACT. HAD AN HYPOGLYCEMIC EPIDSODE OF 43, 53 BLOOD SUGAR. D50 GIVEN, BLOOD SUGAR 175. AM BLOOD SUGAR 153, NO COVERAGE GIVEN. LEFT CHEST TUNNEL CATHETER INTACT, DRESSING CDI. BED IN LOWEST POSITION. SIDE RAILS UPX2. CALL LIGHT WITHIN REACH. WILL ENDORSE TO ONCOMING SHIFT.
[2019-01-13 06:51] LABS: RED CELL DISTRIBUTION WIDTH 15.6 % (11.5-14.5)
--- NOTE | 2019-01-13 07:31 | NUR ---
ALERT AND ORIENTED, IN NO RESP. DISTRESS. BP SLIGHTLY ELEVETED BUT PT ASYMPTOMATIC. DENIES CHEST PAIN OR LIGHT HEADED.CALL LIGHT WITHIN REACH. SITTER AT BEDSIDE. WILL CONTINUE WITH PLAN OF CARE.
--- NOTE | 2019-01-13 08:13 | NUR ---
SCREEN FOR LOW CHUCHO SCALE AT RISK PRESSURE ULCER INJURY PREVENTION INTERVENTIONS: -TURN AND REPOSITION PATIENT Q 2H OFFLOAD LEFT AND RIGHT HIPS -ASSESS AND MONITOR SKIN CONDITION DURING POSITION CHANGE -OFFLOAD BILATERAL HEELS BY PLACING PILLOWS UNDER CALVES AT ALL TIMES, UNLESS OTHERWISE CONTRAINDICATED -PRESSURE REDISTRIBUTION SURFACE THERAPY -KEEP SKIN CLEAN AND DRY AT ALL TIMES.
[2019-01-13 08:27] VITALS: BP 124/47
--- NOTE | 2019-01-13 10:37 | NUR ---
[facility] has received packet via fax. Will begin looking for placement. Will contact with any placement updates. Notes with facilities to follow shortly.
--- NOTE | 2019-01-13 10:56 | NUR ---
Contacted the following facilities regarding placement: [facility]: s/w trish, states no beds now, pending D/cs, will review packet for potential admission. [facility]: s/w Rukhsana, states no beds at this time, f/u later today. [facility]: potential openings, will review packet. Will continue to look for placement, will contact with update.
--- NOTE | 2019-01-13 12:10 | NUR ---
Packet is currently under review for admission at [facility]. Will contact with updates when available.
[2019-01-13 13:29] VITALS: BP 116/48
--- NOTE | 2019-01-13 13:29 | NUR ---
Pt has been accepted to [facility] unit. Unit Phone number : [phone] Bed will be assigned either during report or upon arrival.
--- NOTE | 2019-01-13 14:30 | NUR ---
RESTING IN NO DISTRESS. NO C/O PAIN OR DISCOMFORT.
--- NOTE | 2019-01-13 15:12 | NUR ---
PT WILL BE TRANSFERED TO [facility] UNIT THIS PM. REPORT GIVEN TO . PT WILL BE GOING TO RM #102 BED #2.
--- NOTE | 2019-01-13 16:31 | NUR ---
GLU THIS PM 256. NO COVERAGE GIVEN BECAUSE PT WILL BE LEAVING TO [facility]. RISK FOR HYPOGLYCERMIA ENROUTE. NURSE LUCILLE AT [facility]. MADE AWARE TO CHECK GLU WHEN PT ARRIVES.
--- NOTE | 2019-01-13 16:55 | NUR ---
PT TRANSFERED TO [facility] IN NO RESP. DISTRESS. AWAKE, ALERT AND ORIENTED. VS WNL. NO C/O PAIN OR DISCOMFORT. DC INSTRUCTIONS REVIEWED WITH PT AND FAMILY. COPY SENT TO RECEIVING HOSPITAL. HL IN PLACE AND PATENT. PERSONAL BELONGINGS TAKEN HOME BY FAMILY.
--- NOTE | 2019-01-14 06:37 | NUR ---
PHYSICAL THERAPY DAILY NOTES CO-SIGN All documentation done by the Glass Melt Operator for 01/13/19 has been reviewed. I agree with the documentation. Reviewed/Co-Signed by: Kiah Stone PT Documentation Done by:CAROLE ESCOBEDO PTA
== END 2019-01-13 17:05 | DRG 682 ==
LOC: ED 17:06 → DU 01-12 01:14 → EDBEDREQ 01-12 01:14 → DU 01-12 02:44
PROVIDERS: Emergency Medicine; ADMIT Internal Medicine
DX: I12.0 Hypertensive chronic kidney disease with stage 5 chronic kidney disease or end stage renal disease (principal); N18.6 End stage renal disease; N17.0 Acute kidney failure with tubular necrosis; N39.0 Urinary tract infection, site not specified; I69.354 Hemiplegia and hemiparesis following cerebral infarction affecting left non-dominant side; R45.851 Suicidal ideations; F33.2 Major depressive disorder, recurrent severe without psychotic features; E11.22 Type 2 diabetes mellitus with diabetic chronic kidney disease; E03.9 Hypothyroidism, unspecified; E78.5 Hyperlipidemia, unspecified; Z99.2 Dependence on renal dialysis; Z68.27 Body mass index [BMI] 27.0-27.9, adult; Z79.84 Long term (current) use of oral hypoglycemic drugs; Z79.4 Long term (current) use of insulin
CPT/HCPCS: 82962; 97116-GP; 97530-GP; G0378; G0480; J0696; J3490; J7030; J7050; Q0092

== ENCOUNTER 2020-05-16 06:12 | Day surgery (SDC) | payer OTHER ==
[~2020-05-16] VITALS: Ht 157.5 cm; Wt 62.6 kg
[~2020-05-16 06:12] MED LIST changes: +ADA30 PO; +ELIQUIS2.5 MG PO; +HYDRALAZINE HCL10 MG PO; +LIPI10 PO; +LOP50 PO; +NEP PO; +PHOS PO; +XAN25 PO; +ZESTRIL10 MG PO
[2020-05-16 07:34] VITALS: BP 141/71
[2020-05-16 12:47] VITALS: BP 123/71
== END 2020-05-16 11:35 | disposition home or self-care (01) ==
LOC: DS 06:12
PROVIDERS: ATTEND Internal Medicine
DX: K62.5 Hemorrhage of anus and rectum (principal); E11.22 Type 2 diabetes mellitus with diabetic chronic kidney disease; I13.2 Hypertensive heart and chronic kidney disease with heart failure and with stage 5 chronic kidney disease, or end stage renal disease; I50.9 Heart failure, unspecified; N18.6 End stage renal disease; E78.5 Hyperlipidemia, unspecified; F32.9 Major depressive disorder, single episode, unspecified; E07.9 Disorder of thyroid, unspecified; Z86.73 Personal history of transient ischemic attack (TIA), and cerebral infarction without residual deficits; Z79.899 Other long term (current) drug therapy; Z79.4 Long term (current) use of insulin; Z79.82 Long term (current) use of aspirin
CPT/HCPCS: 45378; J1200; J1610; J2250; J2310; J3010; J3490; U0003